=== PATIENT | male | born 1970 | race Caucasian/White ===

== ENCOUNTER → 2016-11-27 | Outpatient (CLI) | payer OTHER ==
[2016-11-27 13:43] LABS: BASO % 0.7 % (0.0-1.0); EOS # 0.1 K/mm3 (0.0-0.50); EOS % 1.8 % (0.0-3.0); LARGE UNSTAINED CELL # 0.2 K/mm3 (0.0-0.4); LARGE UNSTAINED CELL % 3.3 % (0.0-4.0); LYMPH # 1.5 K/mm3 (1.5-4.5); LYMPH % 27.8 % (24.0-44.0); MEAN CORPUSCULAR HEMOGLOBIN 34.6 pg (27.0-33.0); MEAN CORPUSCULAR HGB CONC 35.2 g/dl (32.0-36.5); MEAN CORPUSCULAR VOLUME 98.2 fl (80.0-96.0); MONO # 0.4 K/mm3 (0.0-0.8); MONO % 6.9 % (0.0-5.0); NEUTROPHILS # 3.1 K/mm3 (1.8-7.7); NEUTROPHILS % 59.4 % (36.0-66.0); PLATELET COUNT, AUTOMATED 264 k/mm3 (150-450); RED CELL DISTRIBUTION WIDTH 12.4 % (11.5-14.5); WHITE BLOOD COUNT 5.3 K/mm3 (4.0-10.0)
[2016-11-27 14:32] LABS: ALBUMIN/GLOBULIN RATIO 1.33 (1.00-1.93); BILIRUBIN,TOTAL 1.2 MG/DL (0.2-1.0); CALCIUM LEVEL 9.1 MG/DL (8.5-10.1); CREATININE FOR GFR 1.39 MG/DL (0.70-1.30); GLOMERULAR FILTRATION RATE 58.1 (>60); POTASSIUM SERUM 4.6 MEQ/L (3.5-5.1)
== END ==
LOC: M WUC 08:54
PROVIDERS: ATTEND Nurse Practitioner Family
DX: I10 Essential (primary) hypertension (principal); Z13.220 Encounter for screening for lipoid disorders

== ENCOUNTER → 2017-01-28 | Outpatient (REF) | payer OTHER ==
[2017-01-28 19:21] LABS: FREE T4 0.96 NG/DL (0.76-1.46)
== END ==
LOC: M LABDRAW1 18:43
PROVIDERS: ATTEND Orthopaedic Surgery
DX: G56.03 Carpal tunnel syndrome, bilateral upper limbs (principal)

== ENCOUNTER → 2017-02-05 | Outpatient (CLI) | payer OTHER ==
[2017-02-05 20:14] LABS: THYROXINE (T4) 7.5 UG/DL (4.5-12.0)
== END ==
LOC: M WUC 15:25
PROVIDERS: ATTEND Orthopaedic Surgery
DX: E07.9 Disorder of thyroid, unspecified (principal)

== ENCOUNTER 2017-05-10 07:31 | Day surgery (SDC) | payer OTHER ==
[~2017-05-10] VITALS: Ht 185.4 cm; Wt 99.3 kg
[~2017-05-10 07:31] MED LIST: CELE10TA PO
[2017-05-10] MEDS ORDERED: NS 1,000 ML IV ONE (07:45)
[2017-05-10] MEDS ORDERED: PROPOFOL 200 MG/20 ML VIAL As Ordered ONE ×2 (07:54→08:54)
[2017-05-10] MEDS ORDERED: LIDOCAINE 2% INJ 100 MG/5 ML SDV (FOR ANES.) As Ordered ONE (09:10)
--- NOTE | 2017-05-10 09:14 | ROOR ---
Patient Name: Kwaku Roberts Procedure Date: 05/10/2017 8:42 AM Date of : 1970 Age: 47 Room: [facility] Gender: Male Note Status: Finalized Procedure: Total Colonoscopy to Cecum + Cold Snare Polypectomy + Hemoclip + Biopsies Indications: Colon cancer screening in patient at increased risk: Colorectal cancer in mother Providers: John Wick MD Referring MD: Cosme Espinal NP Requesting Provider: Medicines: Monitored Anesthesia Care Complications: No immediate complications. Procedure: Pre-Anesthesia Assessment: - The heart rate, respiratory rate, oxygen saturations, blood pressure, adequacy of pulmonary ventilation, and response to care were monitored throughout the procedure. The Colonoscope was introduced through the anus and advanced to the cecum, identified by appendiceal orifice and ileocecal valve. The colonoscopy was performed without difficulty. The patient tolerated the procedure well. The quality of the bowel preparation was excellent. Findings: The perianal and digital rectal examinations were normal. Non-bleeding internal hemorrhoids were found during retroflexion. The hemorrhoids were small and Grade I (internal hemorrhoids that do not prolapse). A small polyp was found at 10 cm proximal to the anus. The polyp was sessile. The polyp was removed with a cold snare. Resection and retrieval were complete. To prevent bleeding after the polypectomy, one hemostatic clip was successfully placed (MR conditional). There was no bleeding at the end of the procedure. A medium polyp was found in the cecum. The polyp was carpet-like. The polyp was removed with a jumbo cold forceps. Resection and retrieval were complete. The exam was otherwise without abnormality on direct and retroflexion views. Impression: - Non-bleeding internal hemorrhoids. - One small polyp at 10 cm proximal to the anus, removed with a cold snare. Resected and retrieved. Clip (MR conditional) was placed. - One medium polyp in the cecum, removed with a jumbo cold forceps. Resected and retrieved. - The examination was otherwise normal on direct and retroflexion views. - The exam was otherwise normal to the cecum. Recommendation: - Patient has a contact number available for emergencies. The signs and symptoms of potential delayed complications were discussed with the patient. Return to normal activities tomorrow. Written discharge instructions were provided to the patient. - High fiber diet. - Discharge patient to home. - Continue present medications. - Await pathology results. - Telephone GI clinic for pathology results in 1 week. - Repeat colonoscopy for surveillance based on pathology results. - Return to referring physician. - The findings and recommendations were discussed with the patient's family. John Wick MD John Wick MD 05/10/2017 9:13:56 AM This report has been signed electronically. Number of Addenda: 0 Note Initiated On: 05/10/2017 8:42 AM Estimated Blood Loss: Estimated blood loss: none.
[2017-05-10 09:30] VITALS: BP 147/91
== END 2017-05-10 09:40 | disposition home or self-care (01) ==
LOC: M OPP 07:31
PROVIDERS: ATTEND Internal Medicine Gastroenterology
DX: Z12.11 Encounter for screening for malignant neoplasm of colon (principal); Z80.0 Family history of malignant neoplasm of digestive organs; K62.1 Rectal polyp; D12.0 Benign neoplasm of cecum; K64.0 First degree hemorrhoids; F41.9 Anxiety disorder, unspecified; Z79.899 Other long term (current) drug therapy; Z87.891 Personal history of nicotine dependence

== ENCOUNTER → 2017-08-15 | Outpatient (CLI) | payer OTHER ==
[2017-08-15 17:53] LABS: BASO # 0.1 10^3/uL (0.0-0.2); BASO % 0.8 % (0.0-1.0); EOS # 0.1 10^3/uL (0.0-0.50); EOS % 2.2 % (0.0-3.0); HEMATOCRIT 48.8 % (42.0-52.0); HEMOGLOBIN 16.8 g/dl (14.0-18.0); IMMATURE GRANULOCYTE % 1.1 % (0-3.0); LYMPH % 31.3 % (24.0-44.0); MEAN CORPUSCULAR HEMOGLOBIN 32.9 pg (27.0-33.0); MEAN CORPUSCULAR HGB CONC 34.4 g/dl (32.0-36.5); MEAN CORPUSCULAR VOLUME 95.5 fl (80.0-96.0); MONO # 0.8 10^3/uL (0.0-0.8); MONO % 12.5 % (0.0-5.0); NEUTROPHILS # 3.3 10^3/uL (1.8-7.7); NEUTROPHILS % 52.1 % (36.0-66.0); PLATELET COUNT, AUTOMATED 285 10^3/uL (150-450); RED BLOOD COUNT 5.11 10^6/uL (4.30-6.10); RED CELL DISTRIBUTION WIDTH 12.9 % (11.5-14.5); WHITE BLOOD COUNT 6.3 10^3/uL (4.0-10.0)
[2017-08-15 18:16] LABS: ALBUMIN/GLOBULIN RATIO 1.33 (1.00-1.93); ALKALINE PHOSPHATASE 81 U/L (45-117); ALT/SGPT 49 U/L (12-78); ANION GAP 6 MEQ/L (8-16); AST/SGOT 27 U/L (7-37); BILIRUBIN,TOTAL 0.9 MG/DL (0.2-1.0); BLOOD UREA NITROGEN 15 MG/DL (7-18); CALCIUM LEVEL 9.1 MG/DL (8.5-10.1); CARBON DIOXIDE LEVEL 29 MEQ/L (21-32); CHLORIDE LEVEL 105 MEQ/L (98-107); CHOLESTEROL LEVEL 218 MG/DL (<200); CHOLESTEROL RISK RATIO 4.448 (<5); GLOMERULAR FILTRATION RATE 57.3 (>60); GLUCOSE, FASTING 88 MG/DL (70-100); HDL CHOLESTEROL 49 MG/DL (>40); LDL CHOLESTEROL 137.6 MG/DL (<100); NON-HDL-C 169 MG/DL; POTASSIUM SERUM 4.7 MEQ/L (3.5-5.1); SODIUM LEVEL 140 MEQ/L (136-145); TRIGLYCERIDES LEVEL 157 MG/DL (<150)
== END ==
LOC: M WUC 10:18
DX: I10 Essential (primary) hypertension (principal); E78.5 Hyperlipidemia, unspecified

== ENCOUNTER 2018-10-11 13:32 | Emergency (ER) | payer OTHER ==
[~2018-10-11] VITALS: Ht 185.4 cm; Wt 107.1 kg
[2018-10-11 13:32] VITALS: BP 197/93
[2018-10-11] MEDS ORDERED: NAPR220C14 PO (13:40)
[2018-10-11] MEDS ORDERED: IBUP-1022 PO (14:33)
--- NOTE | 2018-10-11 15:06 | REP ---
RIGHT ELBOW, FOUR VIEWS: HISTORY: Fall. There is no acute fracture or dislocation. The joint space is normal in appearance. An osteophyte is present on the posterior ulna. IMPRESSION: There is no acute fracture or dislocation. Electronically Signed by Matteo Fairchild MD 10/11/2018 03:10 P
== END 2018-10-11 14:37 | disposition home or self-care (01) ==
LOC: M ED 13:32
DX: S50.01XA Contusion of right elbow, initial encounter (principal); W17.89XA Other fall from one level to another, initial encounter; Y92.818 Other transport vehicle as the place of occurrence of the external cause; Y99.0 Civilian activity done for income or pay

== ENCOUNTER → 2022-02-19 | Outpatient (CLI) | payer OTHER ==
[~2022-02-19] MED LIST changes: +IBUP-1022 PO; +NAPR220C14 PO
[2022-02-19 22:07] LABS: BASO # 0.1 10^3/uL (0.0-0.2); BASO % 0.8 % (0.0-1.0); EOS # 0.1 10^3/uL (0.0-0.5); EOS % 1.4 % (0.0-3.0); HEMOGLOBIN 16.6 g/dl (13.5-17.5); LYMPH # 2.1 10^3/uL (1.5-5.0); LYMPH % 33.3 % (24.0-44.0); MEAN CORPUSCULAR HEMOGLOBIN 32.9 pg (27.0-33.0); MEAN CORPUSCULAR HGB CONC 33.2 g/dl (32.0-36.5); MEAN CORPUSCULAR VOLUME 99.2 fl (80.0-96.0); MONO # 0.6 10^3/uL (0.0-0.8); MONO % 9.3 % (2.0-8.0); NEUTROPHILS # 3.5 10^3/uL (1.5-8.5); NEUTROPHILS % 54.3 % (36.0-66.0); PLATELET COUNT, AUTOMATED 277 10^3/uL (150-450); RED BLOOD COUNT 5.04 10^6/uL (4.30-6.10); WHITE BLOOD COUNT 6.4 10^3/uL (4.0-10.0)
[2022-02-19 22:20] LABS: ALBUMIN 3.9 GM/DL (3.2-5.2); ALT/SGPT 31 U/L (12-78); BILIRUBIN,TOTAL 0.6 MG/DL (0.2-1.0); BLOOD UREA NITROGEN 26 MG/DL (7-18); CALCIUM LEVEL 9.2 MG/DL (8.5-10.1); CARBON DIOXIDE LEVEL 27 MEQ/L (21-32); CHLORIDE LEVEL 107 MEQ/L (98-107); CREATININE FOR GFR 1.26 MG/DL (0.70-1.30); GLOMERULAR FILTRATION RATE > 60.0 (>56); GLUCOSE, FASTING 127 MG/DL (70-100); RHEUMATOID FACTOR QUANT < 10.0 IU/ML (<15.0); SODIUM LEVEL 139 MEQ/L (136-145); TOTAL PROTEIN 6.9 GM/DL (6.4-8.2); URIC ACID 5.2 MG/DL (3.5-7.2)
[2022-02-19 22:54] LABS: ERYTHROCYTE SEDIMENTATION RATE 1 mm/hr (0-20)
== END ==
LOC: M WUC 15:40
PROVIDERS: ATTEND Family Medicine
DX: M25.742 Osteophyte, left hand (principal); R93.6 Abnormal findings on diagnostic imaging of limbs

== ENCOUNTER → 2023-07-06 | Outpatient (REF) | LOC: M PLAIMG 13:55 | PROVIDERS: ATTEND Internal Medicine | DX: R52 Pain, unspecified (principal) ==

== ENCOUNTER → 2024-09-15 | Outpatient (CLI) | payer OTHER ==
[2024-09-15 14:04] LABS: BASO # 0.1 10^3/uL (0.0-0.2); BASO % 0.8 % (0.0-1.0); EOS # 0.1 10^3/uL (0.0-0.5); HEMATOCRIT 46.8 % (42.0-52.0); HEMOGLOBIN 15.8 g/dl (13.5-17.5); LYMPH # 2.2 10^3/uL (1.5-5.0); LYMPH % 37.1 % (24.0-44.0); MEAN CORPUSCULAR HGB CONC 33.8 g/dl (32.0-36.5); MEAN CORPUSCULAR VOLUME 100.6 fl (80.0-96.0); MONO # 0.7 10^3/uL (0.0-0.8); MONO % 11.6 % (2.0-8.0); NEUTROPHILS % 49.2 % (36.0-66.0); PLATELET COUNT, AUTOMATED 301 10^3/uL (150-450); RED BLOOD COUNT 4.65 10^6/uL (4.30-6.10)
[2024-09-15 15:09] LABS: ALKALINE PHOSPHATASE 80 U/L (40-129); ALT/SGPT 25 U/L (7.0-40); AST/SGOT 21 U/L (<34); BILIRUBIN,TOTAL 1.1 MG/DL (0.3-1.2); BLOOD UREA NITROGEN 22 MG/DL (9-23); CALCIUM LEVEL 8.8 MG/DL (8.5-10.1); CARBON DIOXIDE LEVEL 27 MMOL/L (20-31); CHLORIDE LEVEL 105 MMOL/L (98-107); CHOLESTEROL LEVEL 188 MG/DL (<200); CHOLESTEROL RISK RATIO 3.92 (<5); CREATININE FOR GFR 1.09 MG/DL (0.70-1.30); GLOMERULAR FILTRATION RATE > 60.0 (>56); GLUCOSE, FASTING 95 MG/DL (60-100); HDL CHOLESTEROL 47.9 MG/DL (>40); LDL CHOLESTEROL 125.5 MG/DL (<100); NON-HDL-C 140.1 MG/DL; POTASSIUM SERUM 4.1 MMOL/L (3.5-5.1); PSA SCREENING 0.85 NG/ML (< 4.00); SODIUM LEVEL 139 MMOL/L (136-145); TOTAL PROTEIN 6.8 G/DL (5.7-8.2); TRIGLYCERIDES LEVEL 73 MG/DL (<150)
== END ==
LOC: M WUC 10:09
PROVIDERS: ATTEND Family Medicine
DX: Z79.899 Other long term (current) drug therapy (principal)
CPT/HCPCS: 36415; 80053; 80061; 85025; G0103

== ENCOUNTER 2024-10-18 06:51 | Day surgery (SDC) | payer BC ==
[~2024-10-18] VITALS: Ht 185.4 cm; Wt 84.5 kg
[~2024-10-18 06:51] MED LIST changes: +ALPR0.25 PO; +CLON0.5T17 PO; +FLUO1TAB3 PO
[2024-10-18] MEDS ORDERED: LIDOCAINE 2% 100MG/5ML SDV (FOR ANES.) As Ordered ONE (06:58)
[2024-10-18] MEDS ORDERED: propofoL 200 MG/20 ML VIAL As Ordered ONE (06:58)
[2024-10-18 09:05] VITALS: TEMP 97.4
[2024-10-18 09:30] VITALS: BP 133/62; O2SAT 100
== END 2024-10-18 09:37 | disposition home or self-care (01) ==
LOC: M OPP 06:51
PROVIDERS: ATTEND Internal Medicine Gastroenterology
DX: Z12.11 Encounter for screening for malignant neoplasm of colon (principal); K63.5 Polyp of colon; K64.0 First degree hemorrhoids; K57.30 Diverticulosis of large intestine without perforation or abscess without bleeding; Z86.0100 Personal history of colon polyps, unspecified; Z90.49 Acquired absence of other specified parts of digestive tract; F41.9 Anxiety disorder, unspecified; F32.A Depression, unspecified; Z79.899 Other long term (current) drug therapy

== ENCOUNTER → 2024-12-27 | Outpatient (REF) | payer BC, MEDICARE ==
[2024-12-27 17:48] LABS: APPEARANCE, URINE HAZY (CLEAR); BACTERIA, URINE AUTO NEGATIVE (NEGATIVE); BILIRUBIN, URINE AUTO NEGATIVE (NEGATIVE); BLOOD, URINE BLOOD 3+ (NEGATIVE); GLUCOSE, URINE (UA) AUTO NEGATIVE (NEGATIVE); KETONE, URINE AUTO NEGATIVE (NEGATIVE); LEUKOCYTE ESTERASE, URINE AUTO NEGATIVE (NEGATIVE); MUCUS, URINE SMALL (NEGATIVE); NITRITE, URINE AUTO NEGATIVE (NEGATIVE); PROTEIN, URINE AUTO 1+ mg/dL (NEGATIVE); RBC, URINE AUTO 7 /HPF (0-3); SPECIFIC GRAVITY URINE AUTO 1.019 (1.002-1.035); SQUAMOUS EPITHELIAL CELL UR AU 0 /HPF (0-6); UROBILINOGEN, URINE AUTO 0.2 mg/dL (0.0-2.0); WBC, URINE AUTO 6 /HPF (0-3)
== END ==
LOC: M SMT 16:55
PROVIDERS: ATTEND Nurse Practitioner Family
DX: R35.0 Frequency of micturition (principal)

== ENCOUNTER → 2025-02-07 | Outpatient (REF) | payer MEDICARE ==
[~2025-02-07] MED LIST changes: -IBUP-1022 PO; +IBUP600T42 PO
[2025-02-07 14:04] LABS: APPEARANCE, URINE CLEAR (CLEAR); BACTERIA, URINE AUTO NEGATIVE (NEGATIVE); BILIRUBIN, URINE AUTO NEGATIVE (NEGATIVE); BLOOD, URINE BLOOD 2+ (NEGATIVE); GLUCOSE, URINE (UA) AUTO NEGATIVE (NEGATIVE); KETONE, URINE AUTO NEGATIVE (NEGATIVE); LEUKOCYTE ESTERASE, URINE AUTO NEGATIVE (NEGATIVE); NITRITE, URINE AUTO NEGATIVE (NEGATIVE); PROTEIN, URINE AUTO NEGATIVE (NEGATIVE); RBC, URINE AUTO 33 /HPF (0-3); SPECIFIC GRAVITY URINE AUTO 1.010 (1.002-1.035); SQUAMOUS EPITHELIAL CELL UR AU 0 /HPF (0-6); UROBILINOGEN, URINE AUTO 0.2 mg/dL (0.0-2.0); WBC, URINE AUTO 2 /HPF (0-3)
== END ==
LOC: M SMT 12:59
PROVIDERS: ATTEND Nurse Practitioner Family
DX: R31.29 Other microscopic hematuria (principal)

== ENCOUNTER → 2025-02-20 | Outpatient (CLI) | payer MEDICARE ==
[2025-02-20 12:56] LABS: CALCIUM LEVEL 9.5 MG/DL (8.5-10.1); CARBON DIOXIDE LEVEL 30.0 MMOL/L (20-31); CHLORIDE LEVEL 103.0 MMOL/L (98-107); CREATININE FOR GFR 1.26 MG/DL (0.70-1.30); GLOMERULAR FILTRATION RATE 66.5 (>56); POTASSIUM SERUM 4.4 MMOL/L (3.5-5.1); SODIUM LEVEL 141.0 MMOL/L (136-145)
== END ==
LOC: M WUC 09:47
PROVIDERS: ATTEND Nurse Practitioner Family
DX: R31.29 Other microscopic hematuria (principal)

== ENCOUNTER → 2025-02-21 | Outpatient (CLI) | payer MEDICARE ==
[~2025-02-21] MED LIST changes: +ISOVUE-370 76% 100 ML VIAL As Ordered ONE
== END ==
LOC: M RAD 16:55
PROVIDERS: ATTEND Nurse Practitioner Family
DX: N32.89 Other specified disorders of bladder (principal); R31.29 Other microscopic hematuria
CPT/HCPCS: 74178; Q9967

== ENCOUNTER → 2025-04-27 | Outpatient (CLI) | payer MEDICARE ==
[~2025-04-27] MED LIST changes: +FLUO40CA PO; +IBUP-354 PO; -ISOVUE-370 76% 100 ML VIAL As Ordered ONE; +OXYB10TA23 PO; +VIBE75TA PO
[2025-04-27 12:45] LABS: PLATELET COUNT, AUTOMATED 298 10^3/uL (150-450)
[2025-04-27 13:11] LABS: INR 0.98
[2025-04-27 13:13] LABS: ALT/SGPT 25.0 U/L (7.0-40); AST/SGOT 26.0 U/L (<34); CALCIUM LEVEL 8.9 MG/DL (8.5-10.1); CARBON DIOXIDE LEVEL 29.0 MMOL/L (20-31); CHLORIDE LEVEL 105.0 MMOL/L (98-107); CREATININE FOR GFR 1.79 MG/DL (0.70-1.30); GLOMERULAR FILTRATION RATE 43.7 (>56); POTASSIUM SERUM 4.4 MMOL/L (3.5-5.1); SODIUM LEVEL 141.0 MMOL/L (136-145)
== END ==
LOC: M RAD 11:19
PROVIDERS: ATTEND Urology
DX: R31.29 Other microscopic hematuria (principal)

== ENCOUNTER 2025-05-07 10:55 | Day surgery (SDC) | payer MEDICARE ==
[~2025-05-07] VITALS: Ht 185.4 cm; Wt 85.0 kg
[~2025-05-07 10:55] MED LIST changes: +LR 1,000 ML IV SCH
[2025-05-07] MEDS ORDERED: LIDOCAINE 2% 100 MG/5 ML SDV (FOR ANES.) As Ordered ONE (10:56)
[2025-05-07] MEDS ORDERED: MIDAZOLAM INJ 2 MG/2 ML VIAL As Ordered ONE (10:56)
[2025-05-07] MEDS ORDERED: ACETAMINOPHEN 1000MG/100ML IV BAG As Ordered ONE (10:56)
[2025-05-07] MEDS ORDERED: ONDANSETRON 4MG/2ML VIAL As Ordered ONE (10:56)
[2025-05-07] MEDS ORDERED: ROCURONIUM BROMIDE 50MG/5ML VIAL As Ordered ONE (12:05)
[2025-05-07] MEDS: ceFAZolin SOD 2 GM IV ONCE IV ONE (12:17)
[2025-05-07] MEDS ORDERED: LABETALOL 100 MG/20 ML VIAL As Ordered ONE (12:41)
[2025-05-07] MEDS ORDERED: GLYCOPYRROLATE INJ 0.2 MG/ML 2 ML VIAL As Ordered ONE (12:44)
[2025-05-07] MEDS ORDERED: hydrALAZINE 20 MG/ML 1 ML VIAL As Ordered ONE (12:46)
[2025-05-07] MEDS ORDERED: ESMOLOL 100 MG/10 ML VIAL As Ordered ONE (13:15)
[2025-05-07] MEDS ORDERED: SUGAMMADEX SODIUM 200 MG/2 ML VIAL As Ordered ONE (13:15)
[2025-05-07] MEDS: MITOMYCIN 40MG IN 40ML SWFI SYRINGE INTRAVESIC ONE (13:17)
[2025-05-07] MEDS ORDERED: MORPHINE 2 MG/ML 1 ML VIAL IV PRN (13:25)
[2025-05-07] MEDS ORDERED: MACR100C43 PO (13:36)
[2025-05-07] MEDS ORDERED: OXYB5TAB14 PO (13:36)
[2025-05-07] MEDS ORDERED: PYRI1TAB5 PO (13:36)
[2025-05-07] MEDS: HYDROMORPHONE HCL 0.5 MG/0.5 ML SYRINGE IV PRN (13:54)
[2025-05-07] MEDS: ONDANSETRON 4MG/2ML VIAL IV PRN (14:16)
[2025-05-07 16:00] VITALS: BP 145/68; TEMP 98.6; O2SAT 95
== END 2025-05-07 16:17 | disposition home or self-care (01) ==
LOC: M SDC 10:55
PROVIDERS: ATTEND Urology
DX: C67.9 Malignant neoplasm of bladder, unspecified (principal); R35.0 Frequency of micturition; R06.83 Snoring; F41.9 Anxiety disorder, unspecified; F32.A Depression, unspecified; G62.9 Polyneuropathy, unspecified; Z79.899 Other long term (current) drug therapy
CPT/HCPCS: 51720; 52240; 88307; C2617; J0131; J0360; J0688; J1171; J1596; J1805; J1920; J2250; J2405; J2765; J3010; J9280

== ENCOUNTER 2025-05-17 01:59 | Observation (INO) | payer MEDICARE ==
[~2025-05-17] VITALS: Ht 185.4 cm; Wt 81.5 kg
[~2025-05-17 01:59] MED LIST changes: -LR 1,000 ML IV SCH; +MACR100C43 PO; +OXYB5TAB14 PO; +PYRI1TAB5 PO
[2025-05-17] MEDS ORDERED: HALOPERIDOL LACTATE 5 MG/ML VIAL As Ordered ONE (02:13)
[2025-05-17] MEDS ORDERED: diphenhydrAMINE 50 MG/ML VIAL As Ordered ONE (02:13)
[2025-05-17] MEDS: HALOPERIDOL LACTATE 5 MG/ML VIAL IM ONE (02:15)
[2025-05-17] MEDS: diphenhydrAMINE 50 MG/ML VIAL IM ONE (02:15)
[2025-05-17 03:38] LABS: PLATELET COUNT, AUTOMATED 321 10^3/uL (150-450)
[2025-05-17 04:07] LABS: ETHYL ALCOHOL (ETHANOL) 0.006 % (0.000-0.010)
[2025-05-17 04:09] LABS: ALT/SGPT 27 U/L (7.0-40); AST/SGOT 29 U/L (<34); CALCIUM LEVEL 8.8 MG/DL (8.5-10.1); CARBON DIOXIDE LEVEL 26 MMOL/L (20-31); CHLORIDE LEVEL 106 MMOL/L (98-107); CREATININE FOR GFR 1.10 MG/DL (0.70-1.30); GLOMERULAR FILTRATION RATE 78.3 (>56); POTASSIUM SERUM 3.8 MMOL/L (3.5-5.1); SALICYLATE LEVEL < 3.0 MG/DL (<30); SODIUM LEVEL 141 MMOL/L (136-145)
[2025-05-17 06:06] LABS: KETONE, URINE AUTO RFX TRACE mg/dL (NEGATIVE); LEUKOCYTE ESTERASE UR AUTO RFX NEGATIVE (NEGATIVE); MUCUS, URINE RFX SMALL (NEGATIVE); NITRITE, URINE AUTO RFX NEGATIVE (NEGATIVE); RBC, URINE AUTO RFX TNTC /HPF (0-3); SQUAM EPITHELIAL CELL UR AURFX 0 /HPF (0-6)
[2025-05-17 06:07] LABS: WBC, URINE AUTO RFX 14 /HPF (0-3)
[2025-05-17 06:34] LABS: AMPHETAMINES LEVEL URINE NEGATIVE (NEGATIVE); BARBITURATES URINE NEGATIVE (NEGATIVE); COCAINE METABOLITE URINE NEGATIVE (NEGATIVE); METHADONE URINE NEGATIVE (NEGATIVE); OPIATES URINE NEGATIVE (NEGATIVE); PHENCYCLIDINE URINE NEGATIVE (NEGATIVE)
[2025-05-17 06:35] LABS: BENZODIAZEPINES URINE POSITIVE (NEGATIVE); CANNABINOIDS URINE POSITIVE (NEGATIVE)
[2025-05-17 06:36] LABS: CK-MB VALUE MASS 4.8 NG/ML (<3.6)
[2025-05-17 06:46] LABS: CPK CREATINE PHOSPHOKINASE 547.0 U/L (46-171); MB/CK RELATIVE INDEX 0.87 (< OR =4)
[2025-05-17 07:36] LABS: OSMOLALITY SERUM 298.0 MOSM/KG (275-295)
[2025-05-17] MEDS ORDERED: OXYB5TAB14 PO (09:04)
[2025-05-17] MEDS ORDERED: CLON0.5T2 PO (09:04)
[2025-05-17] MEDS ORDERED: PHEN1TAB74 PO (09:04)
[2025-05-17] MEDS ORDERED: HOME MED LIST COMPLETE! XX SCH (09:05)
[2025-05-17] MEDS: FLUoxetine 20 MG CAP PO SCH (12:42)
[2025-05-17] MEDS: FOLIC ACID 1 MG TAB PO SCH (12:42)
[2025-05-17] MEDS: MULTIVITAMINS/MINERALS THERAP 1 TAB PO SCH (12:42)
[2025-05-17] MEDS: THIAMINE 100 MG TAB PO SCH (12:43)
[2025-05-17] MEDS: clonazePAM 0.5 MG TAB PO SCH (12:43)
[2025-05-17 17:36] VITALS: BP 168/74; TEMP 97.7; O2SAT 95
[2025-05-17 20:18] VITALS: BP 137/67; TEMP 97.5; O2SAT 96
[2025-05-17] MEDS: cefTRIAXone SOD 1 GM in DEXTROSE 5% (D5W) ADV/MINI-BAG 50 ML IV SCH (20:18)
[2025-05-17 23:57] VITALS: BP 139/77; TEMP 98.4; O2SAT 96
[2025-05-18] MEDS: ALPRAZolam 0.25 MG TAB PO PRN (03:45)
[2025-05-18 04:19] VITALS: BP 156/76; TEMP 97.8; O2SAT 93
[2025-05-18 05:35] LABS: BASO # 0.1 10^3/uL (0.0-0.2); BASO % 0.7 % (0.0-1.0); EOS # 0.1 10^3/uL (0.0-0.5); EOS % 1.6 % (0.0-3.0); LYMPH # 2.0 10^3/uL (1.5-5.0); LYMPH % 25.6 % (24.0-44.0); MONO # 0.8 10^3/uL (0.0-0.8); MONO % 10.9 % (2.0-8.0); NEUTROPHILS # 4.7 10^3/uL (1.5-8.5); NEUTROPHILS % 60.8 % (36.0-66.0); PLATELET COUNT, AUTOMATED 375 10^3/uL (150-450)
[2025-05-18 07:42] VITALS: BP 151/76; TEMP 98; O2SAT 95
[2025-05-18 12:03] VITALS: BP 131/74; TEMP 97.9; O2SAT 94
[2025-05-18 15:41] VITALS: BP 125/84; TEMP 97.3; O2SAT 93
[2025-05-18] MEDS: traZODone 50 MG TAB PO SCH (19:55)
[2025-05-18 20:00] VITALS: BP 139/87; TEMP 98.2; O2SAT 93
[2025-05-19 00:01] VITALS: BP 133/76; TEMP 98.8; O2SAT 94
[2025-05-19 03:30] VITALS: BP 132/65; TEMP 98.6; O2SAT 95
[2025-05-19 07:35] VITALS: BP 139/78; TEMP 98; O2SAT 94
[2025-05-19 11:34] VITALS: BP 131/69; TEMP 97.9; O2SAT 96
[2025-05-19] MEDS ORDERED: CLON0.5T2 PO (11:50)
== END 2025-05-19 12:58 | disposition home or self-care (01) ==
LOC: M ED 01:59 → M ED INP 02:00 → M PCU 17:32
PROVIDERS: ADMIT Student in an Organized Health Care Education/Training Program; ATTEND Student in an Organized Health Care Education/Training Program
DX: F13.931 Sedative, hypnotic or anxiolytic use, unspecified with withdrawal delirium (principal); F41.9 Anxiety disorder, unspecified; F32.A Depression, unspecified; Z85.51 Personal history of malignant neoplasm of bladder; Z90.49 Acquired absence of other specified parts of digestive tract; Z79.899 Other long term (current) drug therapy
CPT/HCPCS: 36415; 70450; 80048; 80076; 80143; 80307; 81001; 82077; 82140; 82550; 82553; 83605; 83930; 84443; 84484; 85025; 85027; 87086; 93005; 96365; 96366; 96372; 96375; 96376; 99285; G0378; J0696; J1200; J1630; J2060

== ENCOUNTER 2025-05-22 11:53 | Inpatient (IN) | payer MEDICARE ==
[~2025-05-22] VITALS: Ht 185.4 cm; Wt 79.1 kg
[2025-05-22] MEDS: NICOTINE 14 MG/24 HR TRANSDERMAL TD SCH (09:00)
[~2025-05-22 11:53] MED LIST changes: +CLON0.5T2 PO; +PHEN1TAB74 PO
[2025-05-22 12:27] LABS: PLATELET COUNT, AUTOMATED 467 10^3/uL (150-450)
[2025-05-22] MEDS: OLANZapine ORAL DISINTEGRATING TAB 5MG PO ONE (12:35)
[2025-05-22 12:50] LABS: AMPHETAMINES LEVEL URINE NEGATIVE (NEGATIVE); BARBITURATES URINE NEGATIVE (NEGATIVE)
[2025-05-22 12:51] LABS: BENZODIAZEPINES URINE NEGATIVE (NEGATIVE); COCAINE METABOLITE URINE NEGATIVE (NEGATIVE); METHADONE URINE NEGATIVE (NEGATIVE); OPIATES URINE NEGATIVE (NEGATIVE); PHENCYCLIDINE URINE NEGATIVE (NEGATIVE)
[2025-05-22 12:52] LABS: CANNABINOIDS URINE POSITIVE (NEGATIVE)
[2025-05-22 12:53] LABS: ETHYL ALCOHOL (ETHANOL) < 0.003 % (0.000-0.010)
[2025-05-22 12:55] LABS: ALT/SGPT 31 U/L (7.0-40); AST/SGOT 33 U/L (<34); CALCIUM LEVEL 9.2 MG/DL (8.5-10.1); CARBON DIOXIDE LEVEL 24 MMOL/L (20-31); CHLORIDE LEVEL 104 MMOL/L (98-107); CREATININE FOR GFR 1.38 MG/DL (0.70-1.30); GLOMERULAR FILTRATION RATE 59.6 (>56); POTASSIUM SERUM 4.1 MMOL/L (3.5-5.1); SALICYLATE LEVEL < 3.0 MG/DL (<30); SODIUM LEVEL 137 MMOL/L (136-145)
[2025-05-22] MEDS ORDERED: HOME MED LIST COMPLETE! XX SCH (14:20)
[2025-05-22] MEDS ORDERED: MAALOX 30 ML SUSP *UDC PO PRN (15:15)
[2025-05-22] MEDS ORDERED: IBUPROFEN 400 MG TAB PO PRN (15:15)
[2025-05-22 15:35] LABS: KETONE, URINE AUTO RFX TRACE mg/dL (NEGATIVE); LEUKOCYTE ESTERASE UR AUTO RFX NEGATIVE (NEGATIVE); MUCUS, URINE RFX SMALL (NEGATIVE); RBC, URINE AUTO RFX TNTC /HPF (0-3); SQUAM EPITHELIAL CELL UR AURFX 0 /HPF (0-6); YEAST LIKE CELL URINE AUTO RFX SMALL
[2025-05-22 15:38] LABS: NITRITE, URINE AUTO RFX POSITIVE (NEGATIVE); WBC, URINE AUTO RFX TNTC /HPF (0-3)
[2025-05-22] MEDS: LORazepam 1 MG TAB PO PRN (17:44)
[2025-05-22] MEDS: traZODone 50 MG TAB PO PRN (20:26)
[2025-05-22] MEDS: ACETAMINOPHEN 325 MG TAB PO PRN (20:26)
[2025-05-23 06:43] VITALS: BP 168/98; TEMP 98; O2SAT 98
[2025-05-23 08:19] LABS: BASO # 0.0 10^3/uL (0.0-0.2); BASO % 0.5 % (0.0-1.0); EOS # 0.2 10^3/uL (0.0-0.5); EOS % 2.3 % (0.0-3.0); LYMPH # 1.6 10^3/uL (1.5-5.0); LYMPH % 20.7 % (24.0-44.0); MONO # 0.8 10^3/uL (0.0-0.8); MONO % 10.3 % (2.0-8.0); NEUTROPHILS # 5.1 10^3/uL (1.5-8.5); NEUTROPHILS % 65.6 % (36.0-66.0); PLATELET COUNT, AUTOMATED 370 10^3/uL (150-450)
[2025-05-23 08:44] LABS: CALCIUM LEVEL 9.0 MG/DL (8.5-10.1); CARBON DIOXIDE LEVEL 27.0 MMOL/L (20-31); CHLORIDE LEVEL 103.0 MMOL/L (98-107); CREATININE FOR GFR 1.24 MG/DL (0.70-1.30); GLOMERULAR FILTRATION RATE 67.8 (>56); POTASSIUM SERUM 4.4 MMOL/L (3.5-5.1); SODIUM LEVEL 137.0 MMOL/L (136-145)
[2025-05-23] MEDS: OLANZapine ORAL DISINTEGRATING TAB 5MG PO ONE (08:59)
[2025-05-23] MEDS: HALOPERIDOL 10 MG TAB PO ONE (11:13)
[2025-05-23] MEDS: amLODIPine 5 MG TAB PO SCH (14:24)
[2025-05-23 15:23] VITALS: BP 123/73; TEMP 98.6; O2SAT 95
[2025-05-23] MEDS: OLANZapine 5 MG TAB PO SCH (20:27)
[2025-05-24 06:56] VITALS: BP 138/87; TEMP 98.3; O2SAT 96
[2025-05-24] MEDS: PILL CUTTER 1 EACH XX PRN (09:01)
[2025-05-24] MEDS: amLODIPine 5 MG TAB PO SCH (09:05)
[2025-05-24] MEDS: HALOPERIDOL 5 MG TAB PO PRN (09:20)
[2025-05-24] MEDS: HALOPERIDOL 5 MG TAB PO ONE (09:51)
[2025-05-24] MEDS: LORazepam 1 MG TAB PO ONE (09:51)
[2025-05-24] MEDS: DIVALPROEX 250 MG TAB PO ONE (12:00)
[2025-05-25 09:03] LABS: VITAMIN B12 LEVEL 668 PG/ML (211-911)
[2025-05-25] MEDS: OLANZapine 5 MG TAB PO PRN (16:28)
[2025-05-25] MEDS: LORazepam 1 MG TAB PO ONE (17:08)
[2025-05-25] MEDS: traZODone 100 MG TAB PO SCH (20:15)
[2025-05-26 06:37] VITALS: BP 170/70; TEMP 98.8; O2SAT 97
[2025-05-26 08:13] VITALS: BP 135/83
[2025-05-26 14:41] VITALS: BP 118/72; TEMP 98.1; O2SAT 97
[2025-05-26] MEDS: OLANZapine 5 MG TAB PO SCH (21:32)
[2025-05-27] MEDS: HALOPERIDOL 10 MG TAB PO PRN (01:18)
[2025-05-27 15:04] VITALS: BP 128/65; TEMP 97.8; O2SAT 96
[2025-05-28 06:38] VITALS: BP 128/78; TEMP 98; O2SAT 96
[2025-05-28 08:17] VITALS: BP 134/79
[2025-05-28] MEDS: MOM 30 ML SUSPENSION UDC PO PRN (14:32)
[2025-05-28 16:14] VITALS: BP 131/72; TEMP 97.4; O2SAT 99
[2025-05-28] MEDS: RAMELTEON 8 MG TAB PO SCH (20:14)
[2025-05-28 20:32] LABS: ANA PATTERN 2 Nuclear, Homogeneous; ANA TITER 2 1:160 titer (NEGATIVE)
[2025-05-29 06:26] VITALS: BP 122/86; TEMP 98.3; O2SAT 98
[2025-05-29] MEDS: DIVALPROEX 250 MG TAB PO SCH (10:15)
[2025-05-29 14:52] LABS: ARSENIC BLOOD < 3 mcg/L (<23); LEAD BLOOD < 1.0 mcg/dL (<3.5); MERCURY BLOOD < 4 mcg/L (<=10)
[2025-05-29 19:08] VITALS: BP 132/73; TEMP 97.6
[2025-05-30 08:25] VITALS: BP 143/70
[2025-05-30 15:23] VITALS: BP 139/95; TEMP 98.2; O2SAT 97
[2025-05-31 15:52] VITALS: BP 143/70; TEMP 97.7; O2SAT 97
[2025-05-31 16:54] LABS: APPEARANCE, URINE HAZY (CLEAR); BACTERIA, URINE AUTO NEGATIVE (NEGATIVE); BILIRUBIN, URINE AUTO NEGATIVE (NEGATIVE); BLOOD, URINE BLOOD 3+ (NEGATIVE); GLUCOSE, URINE (UA) AUTO NEGATIVE (NEGATIVE); KETONE, URINE AUTO NEGATIVE (NEGATIVE); LEUKOCYTE ESTERASE, URINE AUTO 2+ (NEGATIVE); NITRITE, URINE AUTO NEGATIVE (NEGATIVE); PROTEIN, URINE AUTO 2+ mg/dL (NEGATIVE); RBC, URINE AUTO TNTC /HPF (0-3); SPECIFIC GRAVITY URINE AUTO 1.008 (1.002-1.035); SQUAMOUS EPITHELIAL CELL UR AU 0 /HPF (0-6); UROBILINOGEN, URINE AUTO 0.2 mg/dL (0.0-2.0); WBC, URINE AUTO 8 /HPF (0-3)
[2025-05-31] MEDS: DOCUSATE SODIUM 100 MG CAPSULE PO PRN (17:13)
[2025-05-31] MEDS: OLANZapine 10 MG TAB PO SCH (20:29)
[2025-06-01 01:00] VITALS: BP 143/70; TEMP 97.7; O2SAT 97
[2025-06-01 06:34] VITALS: BP 160/110; TEMP 97.8; O2SAT 97
[2025-06-01 08:26] VITALS: BP 166/82
[2025-06-01 14:51] VITALS: BP 145/85; TEMP 98; O2SAT 94
[2025-06-01] MEDS: DIVALPROEX 250 MG TAB PO SCH (20:43)
[2025-06-02 06:14] VITALS: BP 149/83; TEMP 97.9; O2SAT 98
[2025-06-02 08:01] VITALS: BP 144/69
[2025-06-02 15:33] VITALS: BP 146/80; TEMP 98.7; O2SAT 97
[2025-06-02] MEDS: KETOROLAC TROMETHAMINE 10 MG TAB PO PRN (19:04)
[2025-06-03 06:14] VITALS: BP 138/67; TEMP 97.8; O2SAT 96
[2025-06-03 15:11] VITALS: BP 180/84; TEMP 98.2; O2SAT 98
[2025-06-03] MEDS: amLODIPine 10 MG TAB PO ONE (15:12)
[2025-06-04 05:55] VITALS: BP 168/70; TEMP 97.7; O2SAT 98
[2025-06-04 08:06] VITALS: BP 160/77
[2025-06-04 16:44] VITALS: BP 146/69; TEMP 98.3; O2SAT 98
[2025-06-05 06:33] VITALS: BP 154/74; TEMP 98.3; O2SAT 99
[2025-06-05] MEDS ORDERED: AMLO25TA PO (08:13)
[2025-06-05] MEDS ORDERED: OLAN1TAB20 PO (08:13)
[2025-06-05] MEDS ORDERED: COLA100C5 PO (08:13)
[2025-06-05] MEDS ORDERED: RAME8TAB2 PO (08:13)
[2025-06-05] MEDS ORDERED: DIVA-65 PO (08:13)
[2025-06-05 08:14] VITALS: BP 137/79
[2025-06-05 08:15] VITALS: BP 137/79
== END 2025-06-05 10:43 | disposition home or self-care (01) | DRG 885 ==
LOC: M ED 11:53 → M ED INP 15:11 → M PSY 17:20
PROVIDERS: ADMIT Internal Medicine; ATTEND Psychiatry & Neurology Psychiatry
DX: F29 Unspecified psychosis not due to a substance or known physiological condition (principal); F31.2 Bipolar disorder, current episode manic severe with psychotic features; F12.159 Cannabis abuse with psychotic disorder, unspecified; R31.9 Hematuria, unspecified; C67.9 Malignant neoplasm of bladder, unspecified; G62.9 Polyneuropathy, unspecified; I10 Essential (primary) hypertension; Z96.0 Presence of urogenital implants; Z63.0 Problems in relationship with spouse or partner; Z79.899 Other long term (current) drug therapy; Z90.49 Acquired absence of other specified parts of digestive tract